=== PATIENT | female | born 1975 | race Caucasian/White ===

== ENCOUNTER 2018-09-19 17:11 | Emergency (ER) | payer MEDICAID, OTHER ==
[~2018-09-19] VITALS: Ht 157.5 cm; Wt 79.8 kg
[~2018-09-19 17:11] MED LIST: ALBU-136 IH; NAPR500E1 PO; OMEP20EC4 PO; VIC; [UNRECOGNIZED DRUG - CODE] IH
[2018-09-19 17:22] VITALS: BP 169/96
--- NOTE | 2018-09-19 17:30 | NUR ---
43/F BIB SELF C/O RECURRENT UTI X6 DAYS. PT REPORTS VAGINAL PAIN, SUPRAPUBIC PAIN AND PAIN IN LT LOWER BACK. + BURNING WITH URNATION, HESITANCY, HEMATURIA, FEVER, NAUSEA, AND DIZZINES. PT REPORTS RECURRENT UTI X1 YEAR. WAS LAST SEEN AT [facility] 4 DAYS AGO RECIEVED AMOXICILLIN W/ NO RELIEF. MEDHX:BL STENTS IN KIDNEYS, ARTHRITIS, KIDNEY STONES, FREQUENT UTI, HTN. RX:METHOTREXATE, BP MEDS.
[2018-09-19] MEDS ORDERED: KETOROLAC 30 MG/ML VIAL IVP ONE (18:15)
[2018-09-19] MEDS ORDERED: LEVOFLOXACIN 500 MG/D5W PREMIX 100 ML IV ONE (18:15)
[2018-09-19] MEDS ORDERED: NACL 0.9% 1,000 ML IV ONE (18:15)
[2018-09-19 18:37] LABS: BASOPHILS # (AUTO) 0.1 K/uL (0.00-0.22); BASOPHILS % (AUTO) 0.7 % (0.0-2.0); EOSINOPHILS # (AUTO) 0.2 K/uL (0-0.4); EOSINOPHILS % (AUTO) 2.7 % (0.0-4.0); HEMATOCRIT 29.9 % (36-48); HEMOGLOBIN 8.9 g/dL (12.0-16.0); LYMPHOCYTES # (AUTO) 1.6 K/uL (2.5-16.5); LYMPHOCYTES % (AUTO) 17.3 % (20.5-51.1); MEAN CORPUSCULAR HEMOGLOBIN 17 pg (27-31); MEAN CORPUSCULAR HGB CONC 30 g/dL (33-37); MEAN CORPUSCULAR VOLUME 58.7 fL (80-94); MONOCYTES # (AUTO) 0.8 K/uL (0.8-1.0); NEUTROPHILS # (AUTO) 6.4 K/uL (1.8-7.7); NEUTROPHILS % (AUTO) 70.3 % (42.2-75.2); PLATELET COUNT (AUTO) 395 K/uL (140-450); RED CELL DISTRIBUTION WIDTH 20.4 % (11.6-13.7); WHITE BLOOD COUNT (AUTO) 9.1 K/uL (4.8-10.8)
[2018-09-19 18:42] LABS: APPEARANCE,URINE SL CLOUDY (CLEAR); BILIRUBIN,URINE NEGATIVE (NEGATIVE); BLOOD, URINE 3+ (NEGATIVE); COLOR,URINE YELLOW (YELLOW); LEUKOCYTE ESTERASE ,URINE 2+ (NEGATIVE); NITRITE, URINE POSITIVE (NEGATIVE); UGLUCOSE NEGATIVE (NEGATIVE)
[2018-09-19 18:57] LABS: ALBUMIN 2.8 g/dL (3.4-5.0); ANION GAP 12.6 (8-16); CARBON DIOXIDE 26.7 mmol/L (21-32); CREATININE 1.1 mg/dL (0.6-1.3); POTASSIUM 3.3 mmol/L (3.5-5.1); TOTAL BILIRUBIN 0.3 mg/dL (0.0-1.0)
--- NOTE | 2018-09-19 19:16 | NUR ---
Pt report given to ALEXANDRA REAL. Transfer of care at this time.
--- NOTE | 2018-09-19 19:18 | NUR ---
ASSUMED CARE. RECEIVED RESTING IN BED. NOT IN ACUTE DISTRESS. NO PAIN OR DISCOMFORT NOTED AT THIS TIME. LEVAQUIN IV INFUSING. PT. GOING HOME WHEN IV ANTIBIOTIC IS FINISHED.
[2018-09-19 19:35] LABS: RBC,URINE TOO NUMEROUS TO COUN /HPF (0-5); WBC,URINE >25 (MANY) /HPF (0-5)
--- NOTE | 2018-09-19 19:40 | NUR ---
LEVAQUIN IV COMPLETED. DISCHARGED BY WITH PRESCRIPTION AND WRITTEN AFTERCARE INSTRUCTIONS.
[2018-09-19 19:51] VITALS: BP 159/79
== END 2018-09-19 19:40 | disposition home or self-care (01) ==
LOC: MED 17:11
DX: N39.0 Urinary tract infection, site not specified (principal); I10 Essential (primary) hypertension; J45.909 Unspecified asthma, uncomplicated; F17.210 Nicotine dependence, cigarettes, uncomplicated; M19.90 Unspecified osteoarthritis, unspecified site; Z87.442 Personal history of urinary calculi; Z96.0 Presence of urogenital implants; Z91.018 Allergy to other foods
CPT/HCPCS: 36415; 80053; 81001; 81025; 82150; 83690; 85025; 87086; 96365; 96375; 99283; C1758; J1885; J1956; J7030

== ENCOUNTER 2018-11-17 22:32 | Emergency (ER) | payer MEDICAID ==
[~2018-11-17] VITALS: Ht 157.5 cm; Wt 79.4 kg
[2018-11-17 23:25] VITALS: BP 152/93
--- NOTE | 2018-11-17 23:30 | NUR ---
PT AMBULATED TO WITH STEADY GAIT TO PROVIDE URINE SAMPLE. INSTRUCTED TO RETURN TO LOBBY. AWAITING AVAILABLE BED.
--- NOTE | 2018-11-18 00:55 | NUR ---
PT AMBULATORY TO ER BED 12.
--- NOTE | 2018-11-18 01:01 | NUR ---
PT BIB SELF FOR LOWER ABD PAIN W/ PAINFUL FREQUENT URINATION. PT STATES SHE HAS HAD BLOODY URINE. PT STATES SHE HAS STENT TO LEFT KIDNEY FROM FREQUENT INFECTIONS AND STATES SHE IS SUPPOSE TO HAVE STENT REPLACED OFTEN BUT IS UNABLE TO D/T INSURANCE AND RECENTLY BEEN HOSPITALIZED ABOUT 2X A MONTH D/T INFECTION. ABD, IS ROUND, SOFT, NON TENDER. PT SITTING IN BED AWAKE AND ALERT.
[2018-11-18] MEDS ORDERED: KETOROLAC 60 MG/2 ML VIAL IM ONE (02:25)
[2018-11-18] MEDS ORDERED: ONDANSETRON 4 MG ODT PO ONE (02:25)
--- NOTE | 2018-11-18 03:08 | NUR ---
Patient discharged with v/s stable. Written and verbal after care instructions given and explained. Patient alert, oriented and verbalized understanding of instructions. Ambulatory with steady gait. All questions addressed prior to discharge. ID band removed. Patient advised to follow up with PMD. Rx of CIPRO, MACROBID, PYRIDIUM, NORCO AND MOTRIN given. Patient educated on indication of medication including possible reaction and side effects. Opportunity to ask questions provided and answered.
[2018-11-18 03:09] VITALS: BP 138/90
== END 2018-11-18 03:08 | disposition home or self-care (01) ==
LOC: MED 22:32
DX: N39.0 Urinary tract infection, site not specified (principal); J45.909 Unspecified asthma, uncomplicated; I10 Essential (primary) hypertension; F17.200 Nicotine dependence, unspecified, uncomplicated; Z98.890 Other specified postprocedural states; Z79.899 Other long term (current) drug therapy; Z91.018 Allergy to other foods
CPT/HCPCS: 81002; 81025; 96372; 99283; J1885; Q0162

== ENCOUNTER 2022-07-18 04:15 | Emergency (ER) | payer MEDICAID, OTHER ==
[~2022-07-18] VITALS: Ht 157.5 cm; Wt 81.2 kg
[~2022-07-18 04:15] MED LIST changes: +ALBU-118 IH; -ALBU-136 IH
[2022-07-18 04:20] VITALS: BP 180/100
--- NOTE | 2022-07-18 04:20 | NUR ---
to bed ambulatory
[2022-07-18 04:50] LABS: APPEARANCE,URINE CLOUDY (CLEAR); BILIRUBIN,URINE NEGATIVE (NEGATIVE); BLOOD, URINE 3+ (NEGATIVE); COLOR,URINE YELLOW (YELLOW); LEUKOCYTE ESTERASE ,URINE 2+ (NEGATIVE); NITRITE, URINE POSITIVE (NEGATIVE); PH,URINE 6.5 (5.0-9.0); UGLUCOSE NEGATIVE (NEGATIVE)
--- NOTE | 2022-07-18 04:57 | NUR ---
47 Y/O F PRESENTS WITH BILATERAL NEPHRO TUBES, R TUBE HAS STABBING SHOOTING PAIN 10/10 WITH PRESSURE X3DAYS. PT DENIES ANY NVD, HEADACHES. PT IS AMBULATORY, A&0X4, SKIN INTACT. PMH- KIDNEY STONES, STENTS IN BILATERAL KIDNEYS, HTN, RA ALLERGIES-STRAWBERRIES
[2022-07-18] MEDS ORDERED: NACL 0.9% 1,000 ML IV ONE ×2 (05:35→07:20)
--- NOTE | 2022-07-18 05:55 | NUR ---
PT TO CT VIA [facility]
--- NOTE | 2022-07-18 06:04 | NUR ---
PT RETURNED TO CT
[2022-07-18] MEDS ORDERED: ONDANSETRON 4 MG/2 ML VIAL IVP ONE (06:15)
[2022-07-18] MEDS ORDERED: MORPHINE SULFATE 4 MG/ML SYR IVP ONE (06:15)
[2022-07-18 06:24] VITALS: BP 186/92
[2022-07-18 06:44] LABS: BASOPHILS # (AUTO) 0.1 K/uL (0.00-0.22); BASOPHILS % (AUTO) 1.3 % (0.0-2.0); EOSINOPHILS # (AUTO) 0.7 K/uL (0-0.4); EOSINOPHILS % (AUTO) 7.5 % (0.0-4.0); HEMATOCRIT 32.5 % (36-48); LYMPHOCYTES # (AUTO) 1.6 K/uL (2.5-16.5); LYMPHOCYTES % (AUTO) 17.3 % (20.5-51.1); MEAN CORPUSCULAR HEMOGLOBIN 20 pg (27-31); MEAN CORPUSCULAR HGB CONC 31 g/dL (33-37); MEAN CORPUSCULAR VOLUME 66.3 fL (80-94); MONOCYTES # (AUTO) 0.8 K/uL (0.8-1.0); MONOCYTES % (AUTO) 8.7 % (1.7-9.3); NEUTROPHILS % (AUTO) 65.2 % (42.2-75.2); PLATELET COUNT (AUTO) 448 K/uL (140-450); RED BLOOD CELL COUNT(AUTO) 4.91 MIL/uL (4.20-5.40); RED CELL DISTRIBUTION WIDTH 19.3 % (11.6-13.7); WHITE BLOOD COUNT (AUTO) 9.3 K/uL (4.8-10.8)
[2022-07-18 07:10] LABS: ALBUMIN 2.9 g/dL (3.4-5.0); ANION GAP 13.3 (8-16); CARBON DIOXIDE 25.2 mmol/L (21-32); CREATININE 2.1 mg/dL (0.6-1.3); POTASSIUM 3.5 mmol/L (3.5-5.1); TOTAL BILIRUBIN 0.3 mg/dL (0.0-1.0)
--- NOTE | 2022-07-18 07:25 | NUR ---
Pt report given to MARI SNOWDEN. Transfer of care at this time.
--- NOTE | 2022-07-18 07:26 | NUR ---
Report recieved from ISI Ott for transfer of care.
[2022-07-18] MEDS ORDERED: cefTRIAXone 1,000 MG VIAL ONE (07:34)
--- NOTE | 2022-07-18 08:39 | NUR ---
REPORT GIVEN TO ADDIE SRIVASTAVA FOR TRANSFER OF CARE.
[2022-07-18] MEDS ORDERED: CEPH-588 PO (09:05)
[2022-07-18] MEDS ORDERED: ACET-5636 PO (09:11)
[2022-07-18] MEDS ORDERED: ACET-2619 PO (09:11)
--- NOTE | 2022-07-18 10:05 | NUR ---
Patient discharged with v/s stable. Written and verbal after care instructions given and explained. Patient verbalized understanding. Ambulatory with steady gait. All questions addressed prior to discharge. Advised to follow up with PMD.
== END 2022-07-18 10:05 | disposition home or self-care (01) ==
LOC: MED 04:15
DX: I12.9 Hypertensive chronic kidney disease with stage 1 through stage 4 chronic kidney disease, or unspecified chronic kidney disease (principal); N18.9 Chronic kidney disease, unspecified; D63.1 Anemia in chronic kidney disease; N12 Tubulo-interstitial nephritis, not specified as acute or chronic; N13.30 Unspecified hydronephrosis; Z93.6 Other artificial openings of urinary tract status; J45.909 Unspecified asthma, uncomplicated; M06.9 Rheumatoid arthritis, unspecified; F17.200 Nicotine dependence, unspecified, uncomplicated; Z98.890 Other specified postprocedural states; Z79.899 Other long term (current) drug therapy; Z79.1 Long term (current) use of non-steroidal anti-inflammatories (NSAID); Z79.2 Long term (current) use of antibiotics; Z91.018 Allergy to other foods
CPT/HCPCS: 36415; 74176; 80053; 81001; 83605; 85025; 87040; 87086; 96361; 96365; 96375; 99285; J0696; J2270; J2405; J7030

== ENCOUNTER 2022-07-30 00:35 | Inpatient (IN) | payer OTHER ==
[~2022-07-30] VITALS: Ht 157.5 cm; Wt 77.1 kg
[~2022-07-30 00:35] MED LIST changes: +ACET-2619 PO; +ACET-5636 PO; +CEPH-588 PO
[2022-07-30 01:13] VITALS: BP 197/107
[2022-07-30] MEDS ORDERED: NACL 0.9% 1,000 ML IV ONE (01:25)
--- NOTE | 2022-07-30 01:25 | NUR ---
PT TAKEN TO ER CHAIR
[2022-07-30] MEDS ORDERED: hydrALAZINE 20 MG/ML VIAL IVP ONE (01:30)
--- NOTE | 2022-07-30 01:42 | NUR ---
PT TAKEN TO BED 10
--- NOTE | 2022-07-30 01:44 | NUR ---
X-Ray at bedside.
[2022-07-30 01:55] LABS: BASOPHILS # (AUTO) 0.3 K/uL (0.00-0.22); EOSINOPHILS # (AUTO) 0.6 K/uL (0-0.4); EOSINOPHILS % (AUTO) 5.6 % (0.0-4.0); HEMATOCRIT 32.4 % (36-48); HEMOGLOBIN 9.8 g/dL (12.0-16.0); LYMPHOCYTES # (AUTO) 1.8 K/uL (2.5-16.5); LYMPHOCYTES % (AUTO) 16.2 % (20.5-51.1); MEAN CORPUSCULAR HEMOGLOBIN 20 pg (27-31); MEAN CORPUSCULAR HGB CONC 30 g/dL (33-37); MONOCYTES % (AUTO) 8.5 % (1.7-9.3); NEUTROPHILS # (AUTO) 7.5 K/uL (1.8-7.7); NEUTROPHILS % (AUTO) 66.7 % (42.2-75.2); PLATELET COUNT (AUTO) 464 K/uL (140-450); RED BLOOD CELL COUNT(AUTO) 4.83 MIL/uL (4.20-5.40); RED CELL DISTRIBUTION WIDTH 18.9 % (11.6-13.7); WHITE BLOOD COUNT (AUTO) 11.2 K/uL (4.8-10.8)
[2022-07-30] MEDS ORDERED: cefTRIAXone 1,000 MG VIAL ONE ×2 (02:05→09:53)
[2022-07-30 02:15] LABS: APPEARANCE,URINE CLEAR (CLEAR); BILIRUBIN,URINE NEGATIVE (NEGATIVE); BLOOD, URINE 3+ (NEGATIVE); COLOR,URINE YELLOW (YELLOW); LEUKOCYTE ESTERASE ,URINE 2+ (NEGATIVE); NITRITE, URINE POSITIVE (NEGATIVE); PH,URINE 6.5 (5.0-9.0); UGLUCOSE NEGATIVE (NEGATIVE)
[2022-07-30 02:18] LABS: ALBUMIN 2.9 g/dL (3.4-5.0); ANION GAP 13.2 (8-16); CARBON DIOXIDE 27.3 mmol/L (21-32); POTASSIUM 3.5 mmol/L (3.5-5.1); TOTAL BILIRUBIN 0.3 mg/dL (0.0-1.0)
[2022-07-30] MEDS ORDERED: MORPHINE SULFATE 4 MG/ML SYR IVP ONE (02:40)
--- NOTE | 2022-07-30 03:22 | NUR ---
PT TAKEN TO CT
--- NOTE | 2022-07-30 03:59 | NUR ---
PATIENT'S BP AFTER GIVING HYDRALAZINE AT 192/[address] KANPP MADE AWARE.
[2022-07-30] MEDS ORDERED: LABETALOL 20 MG/4 ML VIAL IVP ONE (04:10)
--- NOTE | 2022-07-30 04:30 | NUR ---
PATIENT HAS COMPLAINTS OF NAUSEA. DR. KNAPP MADE AWARE.
[2022-07-30] MEDS ORDERED: ONDANSETRON 4 MG/2 ML VIAL IVP ONE (04:40)
--- NOTE | 2022-07-30 04:43 | NUR ---
Spoke with Suzy REAL from [facility] and asked about pt conditions and provide clinicals.
[2022-07-30] MEDS ORDERED: ONDANSETRON 4 MG/2 ML VIAL IVP PRN (07:00)
[2022-07-30] MEDS: NACL 0.9% 1,000 ML IV SCH ×3 (07:00→23:00)
[2022-07-30] MEDS ORDERED: ACETAMINOPHEN 325 MG TAB PO PRN (07:00)
[2022-07-30] MEDS ORDERED: LORazepam 2 MG/ML VIAL IVP PRN (07:00)
--- NOTE | 2022-07-30 07:22 | NUR ---
Pt report given to Josias REAL. Transfer of care at this time.
--- NOTE | 2022-07-30 09:17 | NUR ---
PATIENT HAS BEEN SCREENED AND CATEGORIZED MODERATE NUTRITION RISK. PATIENT WILL BE SEEN WITHIN 3-5 DAYS OF ADMISSION. 08/02/22-08/04/[address]
[2022-07-30] MEDS ORDERED: ALBUTEROL SULFATE/IPRATROPIU 3 ML SOL IH PRN (09:50)
[2022-07-30] MEDS: MORPHINE SULFATE 2 MG/ML SYR IVP PRN ×2 (10:09→19:16)
[2022-07-30] MEDS ORDERED: NIFEdipine 60 MG TABER PO SCH (16:30)
[2022-07-30] MEDS ORDERED: hydrALAZINE 20 MG/ML VIAL IVP PRN (16:30)
--- NOTE | 2022-07-30 16:33 | NUR ---
SPOKE WITH DR GONSALEZ RE RENAL DIET AND ELEVATED BP THOUGH ASYMPTOMATIC
--- NOTE | 2022-07-30 19:30 | NUR ---
TAKING OVER PATIENT CARE, INTRODUCED SELF, NO COMPLAINTS AT THIS TIME. PATIENT STABLE. VSS.
--- NOTE | 2022-07-30 21:50 | NUR ---
PT AMBULATED TO RESTROOM. NO COMPLAINTS AT THIS TIME. NO ACUTE DISTRESS NOTED.
--- NOTE | 2022-07-30 23:08 | NUR ---
Pt report given to ADDIE ZELAYA. Transfer of care at this time.
--- NOTE | 2022-07-31 | NUR ---
Patient asleep and comfortable in bed. No signs of distress noted.
--- NOTE | 2022-07-31 02:11 | NUR ---
Patient ambulated to restroom. No complaints of pain or signs of distress noted at this time.
--- NOTE | 2022-07-31 05:20 | NUR ---
Patient ambulated to restroom. No complaints of pain or signs of distress at this time.
[2022-07-31] MEDS: MORPHINE SULFATE 2 MG/ML SYR IVP PRN (05:45)
[2022-07-31] MEDS: NACL 0.9% 1,000 ML IV SCH ×2 (07:01→17:17)
--- NOTE | 2022-07-31 07:16 | NUR ---
Pt report given to Cary REAL. Transfer of care at this time.
[2022-07-31 07:46] LABS: BASOPHILS # (AUTO) 0.1 K/uL (0.00-0.22); BASOPHILS % (AUTO) 0.8 % (0.0-2.0); EOSINOPHILS # (AUTO) 0.6 K/uL (0-0.4); EOSINOPHILS % (AUTO) 5.2 % (0.0-4.0); HEMATOCRIT 31.6 % (36-48); HEMOGLOBIN 9.6 g/dL (12.0-16.0); LYMPHOCYTES # (AUTO) 1.6 K/uL (2.5-16.5); LYMPHOCYTES % (AUTO) 13.7 % (20.5-51.1); MEAN CORPUSCULAR HEMOGLOBIN 20 pg (27-31); MEAN CORPUSCULAR HGB CONC 31 g/dL (33-37); MEAN CORPUSCULAR VOLUME 66.9 fL (80-94); MONOCYTES % (AUTO) 8.4 % (1.7-9.3); NEUTROPHILS # (AUTO) 8.4 K/uL (1.8-7.7); NEUTROPHILS % (AUTO) 71.9 % (42.2-75.2); PLATELET COUNT (AUTO) 444 K/uL (140-450); RED BLOOD CELL COUNT(AUTO) 4.72 MIL/uL (4.20-5.40); RED CELL DISTRIBUTION WIDTH 18.9 % (11.6-13.7); WHITE BLOOD COUNT (AUTO) 11.7 K/uL (4.8-10.8)
[2022-07-31 08:02] LABS: ALBUMIN 2.4 g/dL (3.4-5.0); ANION GAP 12.6 (8-16); CARBON DIOXIDE 23.4 mmol/L (21-32); CREATININE 1.5 mg/dL (0.6-1.3); MAGNESIUM 1.7 mg/dL (1.8-2.4); TOTAL BILIRUBIN 0.3 mg/dL (0.0-1.0)
--- NOTE | 2022-07-31 08:17 | NUR ---
Patient will be admitted to care of SHAIKH LIVIA. Admited to TELEMETRY. Will go to [id number]. Belongings list completed. Report to MARLENE REAL.
[2022-07-31 08:20] VITALS: BP 124/72
--- NOTE | 2022-07-31 08:20 | NUR ---
PATIENT ARRIVED FROM ER, ABLE TO AMBULATE TO [facility] BED WITH STEADY GAIT. PAIN WITHIN TOLERABLE. IV SITE INTACT, PATENT. SKIN INTACT, ON ROOM AIR. NO DISTRESS NOTED. ORIENTED PATIENT TO ROOM AND CALL LIGHT. REVIEWED PLAN OF CARE WITH PATIENT. VERBALIZED UNDERSTANDING. SAFETY MEASURES IN PLACE, CALL LIGHT WITHIN REACH. WILL CONTINUE TO MONITOR.
--- NOTE | 2022-07-31 08:40 | NUR ---
Kylee saavedra in ED - 07/31/22 at 0840 by [email or web address] Patient Tranfers to outside Facility Physician: Location:
[2022-07-31] MEDS: NIFEdipine 90 MG TABER PO SCH (09:32)
--- NOTE | 2022-07-31 09:36 | NUR ---
SCHEDULED MEDICATIONS DUE GIVEN. WILL CONTINUE TO MONITOR.
[2022-07-31 12:00] VITALS: BP 126/61
--- NOTE | 2022-07-31 12:28 | NUR ---
DC [age] YRS OLD FEMALE PATIENT WAS ADMITTED FROM HOME WITH A DX OF PYELONEPHRITIS. PATIENT HAS A HX OF ASTHMA, HTN, RHEUMATOID ARTHRITIS, CKD, KIDNEY STONE COMPLICATED BY MULTIPLE NEPHROSTOMY TUBE PLACEMENT. CXR NORMAL. CT ABD SHOWED MILD TO MODERATE BILATERAL PERINEPHRIC FAT STANDING. ADMINISTERED IVF, IV ABX ROCEPHIN AND CONTINUED HOME MEDS. URINE CULTURE PENDING. DC PLAN TO GO HOME WHEN STABLE. CM TO FOLLOW
--- NOTE | 2022-07-31 13:00 | NUR ---
PATIENT LYING DOWN IN BED SLEEPING, AROUSABLE BY VOICE. NO DISTRESS NOTED. WILL CONTINUE TO MONITOR.
--- NOTE | 2022-07-31 15:00 | NUR ---
PT TALKING ON PHONE, PAIN WITHIN TOLERABLE. WILL CONTINUE TO MONITOR.
[2022-07-31 16:00] VITALS: BP 145/77
[2022-07-31] MEDS: HYDROcodone/APAP 5/325 MG 1 TAB TAB PO PRN ×2 (17:16→23:53)
--- NOTE | 2022-07-31 17:16 | NUR ---
COMPLAINS OF 6/10 FLANK PAIN, NORCO PO PRN GIVEN PER MD ORDERS. WILL CONTINUE TO MONITOR.
--- NOTE | 2022-07-31 19:06 | NUR ---
GAVE REPORT TO TOILET ATTENDANT NURSE FOR CONTINUITY OF CARE. PATIENT IN STABLE CONDITION.
--- NOTE | 2022-07-31 19:30 | NUR ---
RECEIVED PT FROM DAY RN FOR FOR CONTINUITY OF CARE. PT AWAKE, ALERT AND ORIENTED X 4.ON ROOM AIR, BREATHING EVEN AND UNLABORED. IV SITE INTACT, PATENT ON L AC G 18, . SKIN INTACT.BILATERAL NEPHROSTOMY TUBES IN PLACE. . ORIENTED PATIENT TO ROOM AND CALL LIGHT. REVIEWED PLAN OF CARE WITH PATIENT. VERBALIZED UNDERSTANDING. SAFETY MEASURES IN PLACE, CALL LIGHT WITHIN REACH. WILL CONTINUE TO MONITOR.
[2022-07-31 20:00] VITALS: BP 127/63
[2022-08-01] VITALS: BP 143/67
--- NOTE | 2022-08-01 02:58 | NUR ---
PATIENT ASLEEP, AROUSABLE BY VOICE.BREATHING EVEN AND UNLABORED. NO S/SX OF DISTRESS NOTED. ALL PRECAUTIONS IN PLACE. CALL LIGHT WITHIN REACH.WILL CONTINUE TO MONITOR.
[2022-08-01 04:00] VITALS: BP 135/67
[2022-08-01 05:12] LABS: BASOPHILS # (AUTO) 0.1 K/uL (0.00-0.22); BASOPHILS % (AUTO) 1.2 % (0.0-2.0); EOSINOPHILS # (AUTO) 0.6 K/uL (0-0.4); EOSINOPHILS % (AUTO) 5.4 % (0.0-4.0); HEMATOCRIT 31.9 % (36-48); HEMOGLOBIN 9.9 g/dL (12.0-16.0); LYMPHOCYTES # (AUTO) 2.3 K/uL (2.5-16.5); LYMPHOCYTES % (AUTO) 20.8 % (20.5-51.1); MEAN CORPUSCULAR HEMOGLOBIN 21 pg (27-31); MEAN CORPUSCULAR HGB CONC 31 g/dL (33-37); MEAN CORPUSCULAR VOLUME 66.6 fL (80-94); MONOCYTES # (AUTO) 1.1 K/uL (0.8-1.0); MONOCYTES % (AUTO) 10.3 % (1.7-9.3); NEUTROPHILS # (AUTO) 6.8 K/uL (1.8-7.7); NEUTROPHILS % (AUTO) 62.3 % (42.2-75.2); PLATELET COUNT (AUTO) 448 K/uL (140-450); RED BLOOD CELL COUNT(AUTO) 4.79 MIL/uL (4.20-5.40); RED CELL DISTRIBUTION WIDTH 19.4 % (11.6-13.7); WHITE BLOOD COUNT (AUTO) 10.9 K/uL (4.8-10.8)
[2022-08-01 05:29] LABS: ALBUMIN 2.5 g/dL (3.4-5.0); CARBON DIOXIDE 23.5 mmol/L (21-32); CREATININE 1.8 mg/dL (0.6-1.3); MAGNESIUM 1.9 mg/dL (1.8-2.4); POTASSIUM 3.5 mmol/L (3.5-5.1); TOTAL BILIRUBIN 0.2 mg/dL (0.0-1.0)
--- NOTE | 2022-08-01 06:59 | NUR ---
PT IS STABLE. NO ACUTE EVENTS THROUGHOUT THE NIGHT. ALL NEEDS MET.NO S/SX OF DISTRESS AT THIS MOMENT. ALL PRECAUTIONS IN PLACE. CALL LIGHT WITHIN REACH. WILL ENDORSE TO DAY NURSE.
--- NOTE | 2022-08-01 07:20 | NUR ---
RECEIVED REPORT FROM SENIOR MARKETING ENGINEER NURSE FOR CONTINUITY OF CARE, PT IS AWAKE, NO SIGN OF DISTRESS. CALL LIGHT WITHIN REACH.
--- NOTE | 2022-08-01 07:30 | NUR ---
PT FOUND ON ROOM AIR SATURATION @95%. BREATH SOUNDS ARE CLEAR, GOOD CHEST RISE OBSERVED . PT STATED NO RESP DISTRESS AT THIS TIME . WILL CONTINUE TO MONITOR THROUGHOUT SHIFT.
[2022-08-01 08:00] VITALS: BP 105/47
[2022-08-01] MEDS: NIFEdipine 90 MG TABER PO SCH (08:06)
[2022-08-01] MEDS: NACL 0.9% 1,000 ML IV SCH (08:36)
[2022-08-01] MEDS ORDERED: ACET-9525 PO (09:13)
[2022-08-01] MEDS ORDERED: CIPR500T4 PO (09:13)
[2022-08-01 09:48] VITALS: BP 105/47
[2022-08-01] MEDS ORDERED: MUPIROCIN CA NASAL 2% 1GM TUBE NS SCH (10:05)
[2022-08-01] MEDS ORDERED: CHLORHEXADINE GLUC 2% CLOTH TP SCH (10:05)
--- NOTE | 2022-08-01 10:50 | NUR ---
GAVE PT BACTROBAN BEFORE DC, I WALKED WITH THE PT TO THE EXIT WHERE HER COUSIN WAS WAITING IN THE CAR. IV AND ID BAND REMOVED.
[2022-08-01] MEDS ORDERED: BACTO TP (15:59)
[2022-08-02] MEDS ORDERED: NITR100C7 PO (12:09)
== END 2022-08-01 10:50 | disposition home or self-care (01) | DRG 463 ==
LOC: MED 00:35 → OBSVTOIN 07:01 → MTU 07:01
PROVIDERS: ADMIT Hospitalist; ATTEND Hospitalist
DX: N10 Acute pyelonephritis (principal); R65.11 Systemic inflammatory response syndrome (SIRS) of non-infectious origin with acute organ dysfunction; N17.9 Acute kidney failure, unspecified; M06.9 Rheumatoid arthritis, unspecified; N20.0 Calculus of kidney; Z87.442 Personal history of urinary calculi; E44.1 Mild protein-calorie malnutrition; I12.9 Hypertensive chronic kidney disease with stage 1 through stage 4 chronic kidney disease, or unspecified chronic kidney disease; J45.909 Unspecified asthma, uncomplicated; Z68.31 Body mass index [BMI] 31.0-31.9, adult; N18.9 Chronic kidney disease, unspecified; B96.5 Pseudomonas (aeruginosa) (mallei) (pseudomallei) as the cause of diseases classified elsewhere; B96.20 Unspecified Escherichia coli [E. coli] as the cause of diseases classified elsewhere
CPT/HCPCS: 36415; 71045; 80053; 81001; 83605; 83735; 85025; 87040; 87081; 87086; 96365; 96375; 99285; J0360; J0696; J2270; J2405; J3490; J7060; Q0092

== ENCOUNTER 2022-08-28 13:58 | Emergency (ER) | payer OTHER ==
[~2022-08-28] VITALS: Ht 157.5 cm; Wt 82.3 kg
[~2022-08-28 13:58] MED LIST changes: -ACET-5636 PO; +ACET-9525 PO; +BACTO TP; -CEPH-588 PO; +CIPR500T4 PO; -NAPR500E1 PO; +NITR100C7 PO
[2022-08-28 14:23] VITALS: BP 173/91; PULSE 95; RESP 14; TEMP 98.4; O2SAT 98
--- NOTE | 2022-08-28 14:30 | NUR ---
TRIAGE COMPLETE. PENDING BED IN MAIN ED. NO DISTRESS NOTED. AGREEABLE TO PLAN OF CARE.
[2022-08-28 15:00] VITALS: O2SAT 98
--- NOTE | 2022-08-28 15:00 | NUR ---
PATIENT PRESENTS TO ED WITH LEFT LEG EDEMA +2. PT HAS HAD BILATERAL FLANK PAIN. PT STATES THE PAIN HAPPENS WHEN SHE AMBULATES. ITS SHARP WHEN SHE STEPS DOWN ON LEFT LEG. PT STATES SHE HAS NAUSEA WITH PAIN BUT DENIES V/D; SKIN IS PINK/WARM/DRY; AAOX4 WITH EVEN AND STEADY GAIT; LUNGS CLEAR BL; HR EVEN AND REGULAR; PT DENIES ANY FEVER, CP, SOB, OR COUGH AT THIS TIME; PATIENT STATES PAIN OF 9/10 AT THIS TIME; VSS; PATIENT POSITIONED FOR COMFORT; HOB ELEVATED; BEDRAILS UP X2; BED DOWN. CALL LIGHT WITH IN REACH ER MD MADE AWARE OF PT STATUS. PMHX CHRONIC KIDNEY DISEASE UTI KIDNEY STONES ASTHMA RHEUMATOID ARTHTIS FOOD ALLEGRIES STRAWBERRIES.
[2022-08-28] MEDS ORDERED: ONDANSETRON 4 MG ODT PO ONE (15:35)
[2022-08-28] MEDS ORDERED: HYDROcodone/APAP 5/325 MG 1 TAB TAB PO ONE (15:35)
[2022-08-28 16:10] LABS: BASOPHILS # (AUTO) 0.1 K/uL (0.00-0.22); EOSINOPHILS # (AUTO) 0.4 K/uL (0-0.4); EOSINOPHILS % (AUTO) 4.1 % (0.0-4.0); HEMATOCRIT 29.1 % (36-48); LYMPHOCYTES # (AUTO) 1.4 K/uL (2.5-16.5); LYMPHOCYTES % (AUTO) 13.5 % (20.5-51.1); MEAN CORPUSCULAR HEMOGLOBIN 20 pg (27-31); MEAN CORPUSCULAR HGB CONC 31 g/dL (33-37); MEAN CORPUSCULAR VOLUME 65.5 fL (80-94); MONOCYTES # (AUTO) 0.8 K/uL (0.8-1.0); MONOCYTES % (AUTO) 8.1 % (1.7-9.3); NEUTROPHILS # (AUTO) 7.3 K/uL (1.8-7.7); NEUTROPHILS % (AUTO) 73.3 % (42.2-75.2); PLATELET COUNT (AUTO) 517 K/uL (140-450); RED BLOOD CELL COUNT(AUTO) 4.45 MIL/uL (4.20-5.40); RED CELL DISTRIBUTION WIDTH 18.6 % (11.6-13.7)
[2022-08-28 16:22] LABS: BILIRUBIN,URINE NEGATIVE (NEGATIVE); BLOOD, URINE 3+ (NEGATIVE); COLOR,URINE YELLOW (YELLOW); LEUKOCYTE ESTERASE ,URINE 3+ (NEGATIVE); NITRITE, URINE POSITIVE (NEGATIVE); UGLUCOSE NEGATIVE (NEGATIVE)
[2022-08-28 16:23] LABS: APPEARANCE,URINE CLOUDY (CLEAR)
[2022-08-28 16:33] LABS: ALBUMIN 2.7 g/dL (3.4-5.0); ANION GAP 12.8 (8-16); CARBON DIOXIDE 23.4 mmol/L (21-32); POTASSIUM 3.2 mmol/L (3.5-5.1); TOTAL BILIRUBIN 0.3 mg/dL (0.0-1.0)
[2022-08-28 16:34] LABS: RBC,URINE TOO NUMEROUS TO COUN /HPF (0-5)
[2022-08-28] MEDS ORDERED: HYDROcodone/APAP 5/325 MG 1 TAB TAB ONE (16:51)
[2022-08-28] MEDS ORDERED: ONDANSETRON 4 MG TAB ONE (16:52)
[2022-08-28] MEDS ORDERED: ACET-8905 PO (17:59)
[2022-08-28] MEDS ORDERED: CEFP200T20 PO (17:59)
[2022-08-28] MEDS ORDERED: ONDA-188 PO (17:59)
[2022-08-28] MEDS ORDERED: cefTRIAXone 1,000 MG VIAL ONE (18:05)
[2022-08-28 18:19] VITALS: BP 161/92; PULSE 74; RESP 19; TEMP 97.5
--- NOTE | 2022-08-28 18:24 | NUR ---
Patient discharged with v/s stable. Written and verbal after care instructions given and explained. Patient verbalized understanding. Ambulatory with to car. All questions addressed prior to discharge. Advised to follow up with PMD.
--- NOTE | 2022-08-28 18:25 | NUR ---
The patient's care was reviewed and supervised by Mary Peralta, RN, RN.
== END 2022-08-28 18:19 | disposition home or self-care (01) ==
LOC: MED 13:58
DX: N39.0 Urinary tract infection, site not specified (principal); R22.42 Localized swelling, mass and lump, left lower limb; I12.9 Hypertensive chronic kidney disease with stage 1 through stage 4 chronic kidney disease, or unspecified chronic kidney disease; N18.9 Chronic kidney disease, unspecified; J45.909 Unspecified asthma, uncomplicated; M06.9 Rheumatoid arthritis, unspecified; F17.200 Nicotine dependence, unspecified, uncomplicated; Z98.890 Other specified postprocedural states; Z79.899 Other long term (current) drug therapy; Z79.2 Long term (current) use of antibiotics; Z91.018 Allergy to other foods
CPT/HCPCS: 36415; 74176; 80053; 81001; 81025; 83605; 83690; 85025; 87040; 87086; 93971; 96365; 99285; J0696; Q0092; Q0162

== ENCOUNTER 2022-10-28 19:48 | Emergency (ER) | payer OTHER ==
[~2022-10-28] VITALS: Ht 157.5 cm; Wt 80.3 kg
[~2022-10-28 19:48] MED LIST changes: +ACET-8905 PO; +CEFP200T20 PO; +ONDA-188 PO
[2022-10-28 20:00] VITALS: BP 173/93; PULSE 84; RESP 16; TEMP 97.7; O2SAT 100
[2022-10-28 21:00] VITALS: O2SAT 100
[2022-10-28] MEDS ORDERED: ONDANSETRON 4 MG ODT PO ONE (21:15)
[2022-10-28] MEDS ORDERED: MORPHINE SULFATE 4 MG/ML SYR IM ONE (21:15)
[2022-10-28] MEDS ORDERED: ONDA8TAB87 PO (21:24)
[2022-10-28] MEDS ORDERED: CIPR500T4 PO (21:24)
[2022-10-28] MEDS ORDERED: HYDR-5191 PO (21:24)
== END 2022-10-28 21:30 | disposition home or self-care (01) ==
LOC: MED 19:48
DX: N39.0 Urinary tract infection, site not specified (principal); I12.9 Hypertensive chronic kidney disease with stage 1 through stage 4 chronic kidney disease, or unspecified chronic kidney disease; N18.9 Chronic kidney disease, unspecified; J45.909 Unspecified asthma, uncomplicated; F17.200 Nicotine dependence, unspecified, uncomplicated; Z79.899 Other long term (current) drug therapy
CPT/HCPCS: 81002; 81025; 87086; 96372; 99283; J2270; Q0162

== ENCOUNTER 2022-11-18 02:50 | Emergency (ER) | payer OTHER ==
[~2022-11-18] VITALS: Ht 157.5 cm; Wt 81.6 kg
[~2022-11-18 02:50] MED LIST changes: +HYDR-5191 PO; +ONDA8TAB87 PO
[2022-11-18 03:00] VITALS: BP 184/106; PULSE 80; RESP 18; TEMP 97.4; O2SAT 100
[2022-11-18 05:49] LABS: BASOPHILS # (AUTO) 0.1 K/uL (0.00-0.22); BASOPHILS % (AUTO) 1.2 % (0.0-2.0); EOSINOPHILS # (AUTO) 0.8 K/uL (0-0.4); EOSINOPHILS % (AUTO) 9.3 % (0.0-4.0); HEMATOCRIT 30.6 % (36-48); HEMOGLOBIN 9.5 g/dL (12.0-16.0); LYMPHOCYTES # (AUTO) 1.7 K/uL (2.5-16.5); LYMPHOCYTES % (AUTO) 20.1 % (20.5-51.1); MEAN CORPUSCULAR HEMOGLOBIN 20 pg (27-31); MEAN CORPUSCULAR HGB CONC 31 g/dL (33-37); MEAN CORPUSCULAR VOLUME 65.2 fL (80-94); MONOCYTES # (AUTO) 0.9 K/uL (0.8-1.0); MONOCYTES % (AUTO) 10.3 % (1.7-9.3); NEUTROPHILS # (AUTO) 5.1 K/uL (1.8-7.7); NEUTROPHILS % (AUTO) 59.1 % (42.2-75.2); PLATELET COUNT (AUTO) 428 K/uL (140-450); RED BLOOD CELL COUNT(AUTO) 4.69 MIL/uL (4.20-5.40); RED CELL DISTRIBUTION WIDTH 20.8 % (11.6-13.7); WHITE BLOOD COUNT (AUTO) 8.6 K/uL (4.8-10.8)
[2022-11-18] MEDS ORDERED: MORPHINE SULFATE 4 MG/ML SYR IM ONE (05:50)
[2022-11-18 05:59] LABS: ALBUMIN 2.5 g/dL (3.4-5.0); ANION GAP 9.1 (8-16); CALCIUM 8.4 mg/dL (8.5-10.1); CARBON DIOXIDE 27.2 mmol/L (21-32); POTASSIUM 3.3 mmol/L (3.5-5.1); TOTAL BILIRUBIN 0.2 mg/dL (0.0-1.0); TOTAL PROTEIN, SERUM 7.3 g/dL (6.4-8.2)
[2022-11-18 06:02] LABS: BILIRUBIN,URINE NEGATIVE (NEGATIVE); BLOOD, URINE 3+ (NEGATIVE); COLOR,URINE YELLOW (YELLOW); LEUKOCYTE ESTERASE ,URINE 2+ (NEGATIVE); NITRITE, URINE POSITIVE (NEGATIVE); PROTEIN,URINE 3+ (NEGATIVE); UGLUCOSE NEGATIVE (NEGATIVE); UROBILINOGEN,URINE 0.2 EU/dL (0.2 - 1)
[2022-11-18 06:12] LABS: APPEARANCE,URINE CLOUDY (CLEAR)
[2022-11-18 06:22] LABS: BACTERIA,URINE 1+ /HPF (None Seen); RBC,URINE 20-50 /HPF (0-5); SQUAMOUS EPITHELIAL CELL,UR 0-3 (FEW) /LPF (0-3 (FEW)); WBC,URINE TOO MANY TO COUNT /HPF (0-5)
[2022-11-18] MEDS ORDERED: MORPHINE SULFATE 2 MG/ML SYR IM STA (08:30)
[2022-11-18] MEDS ORDERED: CIPR500T9 PO (08:51)
[2022-11-18] MEDS ORDERED: FAMO-90 PO (08:54)
[2022-11-18] MEDS ORDERED: MAG355OR2 PO (08:54)
[2022-11-18] MEDS ORDERED: MORPHINE SULFATE 2 MG/ML SYR IVP STA (09:49)
[2022-11-18] MEDS ORDERED: AMOX1TAB8 PO (09:51)
[2022-11-18] MEDS ORDERED: cefTRIAXone 1,000 MG VIAL ONE (09:52)
[2022-11-18 10:49] VITALS: BP 145/89; PULSE 80; RESP 16; TEMP 97.8; O2SAT 95
== END 2022-11-18 10:49 | disposition home or self-care (01) ==
LOC: MED 02:50
DX: K29.80 Duodenitis without bleeding (principal); N39.0 Urinary tract infection, site not specified; I12.9 Hypertensive chronic kidney disease with stage 1 through stage 4 chronic kidney disease, or unspecified chronic kidney disease; N18.9 Chronic kidney disease, unspecified; J45.909 Unspecified asthma, uncomplicated; F17.210 Nicotine dependence, cigarettes, uncomplicated; Z98.890 Other specified postprocedural states; Z79.899 Other long term (current) drug therapy; Z79.2 Long term (current) use of antibiotics; Z91.018 Allergy to other foods
CPT/HCPCS: 36415; 74176; 80053; 81001; 81025; 83690; 85025; 87086; 96365; 96372; 96375; 99285; J0696; J2270